=== PATIENT | male | born 2000 | race Caucasian/White ===

== ENCOUNTER 2019-10-21 21:47 | Emergency (ER) | payer OTHER, SELFPAY ==
[2019-10-21 22:00] VITALS: BP 125/64; PULSE 108; RESP 17; TEMP 36.9; O2SAT 97; BMI 19.5
--- NOTE | 2019-10-21 22:16 | W.ED.EXTPRO ---
HPI - Extremity Problem General: Chief complaint: Extremity Injury, Lower Stated complaint: back of foot pain Time Seen by Provider: 10/21/19 22:15 History of Present Illness: HPI Narrative: Patient is a 18-year-old male who comes to the ED with left ankle and left knee pain. Patient says just prior to arrival he was walking outside and he stepped into a hole twisting his left ankle and left knee. He now has pain in his left ankle left knee that he rates around a 7 out of 10. He has not taken any [id number] pain meds before coming to the ED. Associated symptoms: Deny chest pain, fever(s) or rash Review of Systems Const: Denies: fever(s), chills or fatigue Eyes: Denies: change in vision or eye discomfort ENMT: Denies: throat pain, odynophagia, nasal discharge or nasal congestion Card: Denies: chest pain, palpitations, edema, swelling of feet/ankles, dyspnea on exertion or orthopnea Resp: Denies: dyspnea, productive cough or non-productive cough GI: Denies: abdominal pain, nausea, vomiting, diarrhea, constipation or hematochezia : Denies: flank pain, difficulty urinating, dysuria or hematuria Musc: Reports: extremity pain (left ankle and left knee); Denies: neck pain, back pain or extremity swelling Skin/Breast: Denies: rash or new lesions Neuro: Denies: headache(s), numbness in extremities or weakness in extremities Physical Exam Const: COMMON NORMALS: no acute distress, patient oriented x3, healthy appearing and alert GENERAL APPEARANCE: cooperative and comfortable HENMT: COMMON NORMALS: normocephalic HEAD & SCALP: normocephalic MOUTH: Normal oral and palatal mucosa present THROAT: posterior oropharynx normal and uvula midline Eye: COMMON NORMALS: Equal, round and reactive pupils present PUPIL: Yes Equal, round and reactive pupils present Neck/C-Spine: COMMON NORMALS: supple GENERAL: Yes normal visual inspection Resp: COMMON NORMALS: normal respiratory effort, No retractions, No use of accessory muscles and clear to auscultation bilaterally AUSCULTATION: clear to auscultation bilaterally Cardio: COMMON NORMALS: regular rate, regular rhythm, S1 normal heart sound present, S2 normal heart sound present, No gallops present (Cardio), No clicks present (Cardio), No murmurs present (Cardio) and Peripheral pulses 2+ throughout RATE: regular rate RHYTHM: regular rhythm HEART SOUNDS: S1 normal heart sound present and S2 normal heart sound present PERIPHERAL PULSES: Peripheral pulses 2+ throughout GI: COMMON NORMALS: Normal to inspection, nondistended, normoactive bowel sounds present, Soft to palpation, non-tender and no masses PALPATION: Yes Soft to palpation : COMMON NORMALS: Yes no CVA tenderness BLADDER/KIDNEY EXAM: Yes no CVA tenderness Back/Pelvis: COMMON NORMALS: no CVA tenderness Extremity: GENERAL: Yes normal exam except as noted LEFT LOWER EXTREMITY: Yes knee joint Left knee: Yes inspection (No swelling ecchymosis on the knee.), Yes palpation (Tenderness to palpation over the meniscus), Yes ROM (Fall with some pain) and Yes neurovascular exam (intact) and Yes ankle joint Left ankle: Yes inspection (Normal inspection of left ankle, no edema, ecchymosis or deformity seen.), Yes palpation (Tender on lateral malleolus), Yes ROM (Fall with minimal pain) and Yes neurovascular exam (Intact) Neuro: COMMON NORMALS: patient oriented x3 and moves all extremities SENSORIUM/ORIENTATION: Yes alert Skin: COMMON NORMALS: no rashes or lesions noted GENERAL SKIN EXAM: no rashes or lesions noted and dry skin Course Vital Signs: Vital signs: Vital Signs Temperature 98.5 F 10/21/19 22:00 Pulse Rate 84 10/21/19 22:29 Respiratory Rate 18 10/21/19 22:29 Blood Pressure 142/82 10/21/19 22:29 Pulse Oximetry 99 10/21/19 22:29 MDM - Extremity (Nontraumatic) MDM Narrative: Medical decision making narrative: Patient is a 18-year-old male who comes to the ED with left knee and left ankle pain. Patient describes having a twisting injury just prior to arrival to the ED. Exam shows tenderness upon palpation of the meniscus of the left knee and tenderness upon palpation of the lateral malleolus of the left ankle. No visible deformity, ecchymosis or edema seen on knee or ankle. Pedal pulse 2+ and sensation intact. Left ankle and left knee x-ray showed no acute fractures or findings. Patient was discharged and given crutches and put in a knee immobilizer. He was told to rest and [id number] for the next 2 days and then to remove knee immobilizer and weight-bear as tolerated. Follow-up with PCP in 7 to 10 days for reevaluation. I informed patient that the x-ray rules out any fractures but he would need further imaging done such as CT or MRI to evaluate any soft tissue/ligament damage in the left knee if needed. Patient told to ice and elevate leg and to take ibuprofen for pain. Patient understood and agreed with plan. Imaging Data^: Xray Ortho: Attestation: I personally reviewed and interpreted this imaging study as follows: My impression: Left ankle x-ray showed no acute findings or fractures. Left knee x-ray showed no acute fractures or findings. Discharge Plan Discharge Patient Disposition: Home Clinical Impression: Ankle sprain and strain Knee pain, left Qualifiers: Chronicity: acute Qualified Code(s): M25.562 - Pain in left knee Condition: Stable Discharge Orders: Discharge Order (Routine); Ordered 10/21/19 Ordered By: Felipe Carrasquillo Discharge Diet: Regular Discharge Activity: Increase activity as tolerated and Use walker/crutches as instructed Patient Instructions: Ankle Sprain (ED), Knee Pain (ED) Activity Restrictions/Additional Instructions: Follow-up with medical provider as directed in 7-10 days. Take ibuprofen for pain. Use crutches and knee immobilizer for the next 2 days. Try weightbearing and remove knee immobilizer to reassess healing on day 3. Ice and elevate left leg. Return to the ER or your medical provider if condition worsens. Please read and understand discharge instructions. If any questions, please ask. Discharge Date/Time: 10/21/19 23:10 Coding Level of Care Code ED Occupational Health Specialist for [facility] Fwelly Exam Comprehensive
--- NOTE | 2019-10-21 22:25 | XR_ITS ---
WS: [id number] EXAM: LEFT ANKLE: 3 VIEWS DATE OF EXAMINATION: 10/21/2019, 2025 hour COMPARISON: None. HISTORY: Patient is 18 years old with ankle pain after stepping in hole with twisting injury. FINDINGS: Bone density is normal in appearance. Ankle mortise is symmetrical. Bone island within the medial mal leolus. No fracture or dislocation is seen. There does appear to be a small amount of edema around th e anterior medial ankle. Tiny heel spur plantar aponeurosis insertion. XR/XR ankle LT min 3V* [id number] IMPRESSION: Slight soft tissue swelling anterior medially near the deltoid ligament. No fra cture seen. Tiny heel spur.
--- NOTE | 2019-10-21 22:25 | XR_ITS ---
WS: [id number] EXAM: LEFT KNEE: 3 VIEWS DATE OF EXAMINATION: 10/21/2019, 2024 hours COMPARISON: None. HISTORY: Patient is 18 years old with knee pain after twisting injury stepping in hole. FINDINGS: Osseous, joint and surrounding soft tissue structures are unremarkable. No acute bony abnormality is seen. If there is concern for internal derangement MRI is the imaging modality of choice for evaluati on if further investigation is needed clinically. XR/XR knee LT 3V* [id number] IMPRESSION: Negative.
[2019-10-21 22:29] VITALS: BP 142/82; PULSE 84; RESP 18; O2SAT 99
[2019-10-21] MEDS: ketorolac 60 mg/2 mL INJ IM (22:32)
== END 2019-10-21 23:10 | disposition home or self-care (01) ==
PROVIDERS: Emergency Provider Physician Assistant
DX: S93.402A Sprain of unspecified ligament of left ankle, initial encounter (principal); S96.912A Strain of unspecified muscle and tendon at ankle and foot level, left foot, initial encounter; M25.562 Pain in left knee; X50.1XXA Overexertion from prolonged static or awkward postures, initial encounter
CPT/HCPCS: 12345; 29530; 73562; 73610; 96372; 99281; 99283; E0114; J1885

== ENCOUNTER → 2019-11-20 18:38 | Outpatient (BNVA) | payer OTHER, SELFPAY | PROVIDERS: Visit Provider Nurse Practitioner | DX: Z20.2 Contact with and (suspected) exposure to infections with a predominantly sexual mode of transmission (principal) | CPT/HCPCS: 87086; 87491; 87591 ==